=== PATIENT | female | born 1970 | race Two or more races ===

== ENCOUNTER 2022-08-23 14:33 | Emergency (ER) | payer OTHER ==
[~2022-08-23] VITALS: Ht 167.6 cm; Wt 130.6 kg
[2022-08-23] MEDS ORDERED: TOPROL XL100 M1 PO (14:44)
== END 2022-08-23 17:49 | disposition home or self-care (01) ==
LOC: ER 14:33
DX: J32.9 Chronic sinusitis, unspecified (principal); H92.01 Otalgia, right ear; Z88.8 Allergy status to other drugs, medicaments and biological substances; Z87.898 Personal history of other specified conditions

== ENCOUNTER 2024-01-08 08:48 | Emergency (ER) | payer OTHER ==
[~2024-01-08] VITALS: Ht 162.6 cm; Wt 127.0 kg
[~2024-01-08 08:48] MED LIST: TOPROL XL100 M1 PO
[2024-01-08] MEDS ORDERED: ADULT LOW DOSE81 M1 PO (09:16)
[2024-01-08] MEDS ORDERED: TOPROL XL50 M1 PO (09:16)
[2024-01-08] MEDS ORDERED: KETOROLAC TROMETHAMINE 60 MG VIAL IM STA (10:02)
== END 2024-01-08 12:36 | disposition home or self-care (01) ==
LOC: ER 08:48
DX: S20.219A Contusion of unspecified front wall of thorax, initial encounter (principal); W18.39XA Other fall on same level, initial encounter; Y93.89 Activity, other specified; Y92.89 Other specified places as the place of occurrence of the external cause; I49.8 Other specified cardiac arrhythmias; Z88.6 Allergy status to analgesic agent

== ENCOUNTER 2024-12-11 13:18 | Emergency (ER) | payer OTHER ==
[~2024-12-11] VITALS: Ht 167.6 cm; Wt 86.2 kg
[~2024-12-11 13:18] MED LIST changes: +ADULT LOW DOSE81 M1 PO; +TOPROL XL50 M1 PO
[2024-12-11] MEDS ORDERED: ORPHENADRINE CITRATE 30 MG/ML AMPUL IM STA (14:37)
[2024-12-11] MEDS ORDERED: KETOROLAC TROMETHAMINE 30 MG VIAL IM STA (14:37)
[2024-12-11] MEDS ORDERED: 0.9 % SODIUM CHLORIDE 1,000 ML IV STA (14:39)
[2024-12-11] MEDS ORDERED: KETOROLAC TROMETHAMINE 30 MG VIAL ONE (15:12)
[2024-12-11] MEDS ORDERED: ORPHENADRINE CITRATE 30 MG/ML AMPUL ONE (15:12)
[2024-12-11 15:28] LABS: BASO % 0.3 % (0.1-1.2); EOS # 0.14 (0.04-0.54); EOS % 1.9 % (0.7-7.0); LYMPH # 1.28 (1.18-3.74); LYMPH % 17.6 % (19.3-53.1); MEAN PLATELET VOLUME 9.30 fl (9.4-12.4); MONO # 0.44 (0.24-0.82); MONO % 6.1 % (4.7-12.5); NEUT # 5.37 (1.56-6.13); NEUT % 73.8 % (34.0-71.1); RED CELL DISTRIBUTION WIDTH 14.3 % (11.6-14.4)
[2024-12-11 15:51] LABS: ALT/SGPT 22.0 U/L (12-78); AST/SGOT 14.0 U/L (15-37); BILIRUBIN TOTAL 0.43 mg/dL (0.3-1.2); BUN CREA RATIO 26.0 (7.0-25.0); CREATININE SERUM 0.54 mg/dL (0.55-1.02); GFR 117.21; GLOBULINA 3.1 G/DL (2.4-3.5); GLUCOSE FASTING 81.0 mg/dL (65-100); OSMOLALITY SERUM 286.0 MOSM/KG (275-295)
[2024-12-11 15:52] LABS: URINE APPEARANCE Cloudy; URINE BILIRRUBIN Negative (NEGATIVE); URINE BLOOD Moderate; URINE COLOR Yellow; URINE KETONE 15 (NEGATIVE); URINE LEUKOCYTE Negative; URINE NITRATE Negative; URINE PROTEIN Negative (NEGATIVE); URINE UROBILINOGEN 0.2 E.U./dl
[2024-12-11 15:56] LABS: URINE BACTERIA 406.6 uL (0.0-1933); URINE EPITHELIAL CELLS 3.9 uL (0.0-38.8); URINE RBC 16.7 uL (0.0-20.8); URINE WBC 5.2 uL (0.0-23.2)
[2024-12-11 16:06] LABS: URINE CAST 0.00 uL (0.0-1.40); URINE GLUCOSE 250 MG/DL (NEGATIVE)
[2024-12-11] MEDS ORDERED: TAMSULOSIN HCL 0.4 MG CAP PO STA (20:24)
[2024-12-11] MEDS ORDERED: TAMSULOSIN HCL 0.4 MG CAP PO ONE (20:32)
== END 2024-12-11 20:42 | disposition home or self-care (01) ==
LOC: ER 13:18
PROVIDERS: General Practice
DX: N23 Unspecified renal colic (principal); N13.30 Unspecified hydronephrosis; N20.1 Calculus of ureter; K76.0 Fatty (change of) liver, not elsewhere classified; I10 Essential (primary) hypertension; Z88.8 Allergy status to other drugs, medicaments and biological substances